=== PATIENT | female | born 2000 | race Caucasian/White ===

== ENCOUNTER 2024-07-06 08:53 | Emergency (ER) | payer SELFPAY ==
[2024-07-06 09:32] VITALS: BP 160/100; PULSE 87; TEMP 36.6; O2SAT 98; BMI 42.1
[2024-07-06 10:23] LABS: Bilirubin Urine Negative (Negative); Blood Urine Negative (Negative); Glucose Urine UA Negative (Normal); Ketones Urine Negative (Negative); Leukocyte Esterase Urine Negative (Negative); Nitrate Urine Negative (Negative); Protein Urine Trace (Negative); Specific Gravity, Urine 1.007 (1.005-1.030); Urine Appearance Clear (CLEAR); Urine Color Yellow (Yellow); Urobilinogen Urine 0.2 mg/dL (Negative)
[2024-07-06 10:43] LABS: Add Urine Culture? No; Add Urine Microscopic? YES; Amorphous Sediment Urine 1+ /hpf; Bacteria Urine TRACE /hpf; RBC Urine RARE /hpf (0-2); Squamous Epithelial Cell Urine RARE /hpf (0-5); WBC Urine RARE /hpf (0-5)
[2024-07-06 11:04] LABS: Basophils # 0.1 10^3/uL (0.0-0.1); Basophils % 0.7 %; Eosinophils # 0.1 10^3/uL (0.0-0.8); Eosinophils % 1.7 %; Hematocrit 42.3 % (36-47); Lymphocytes # 1.5 10^3/uL (0.8-4.8); Lymphocytes % 20.7 %; Mean Corpuscular HGB Conc 32.9 g/dL (30-55); Mean Corpuscular Hemoglobin 25.5 pg (27-33); Mean Corpuscular Volume 77.5 fl (85-98); Mean Platelet Volume 9.2 fL (7.4-10.4); Monocytes # 0.5 10^3/uL (0.2-0.9); Monocytes % 7.3 %; Neutrophils # 5.14 10^3/uL (1.8-7.7); Neutrophils % 69.1 %; Nucleated Red Blood Cells % 0 %; Platelet Count 297 10^3/cmm (157-399); Red Blood Count 5.46 10^6/uL (3.85-5.65); Red Cell Distribution Width 15.2 % (12.1-15.1); White Blood Count 7.44 10^3/uL (3.29-11.43)
[2024-07-06 11:12] LABS: Influenza A NEGATIVE (Negative); Influenza B NEGATIVE (Negative); Respiratory Syncytial Virus Ce NEGATIVE (Negative); SARS-CoV-2 PCR NEGATIVE (Negative)
[2024-07-06 11:25] LABS: Alanine Aminotransferase 21 U/L (0-33); Albumin Level 4.5 g/dL (3.5-5.2); Alkaline Phosphatase 80 U/L (35-105); Anion Gap 14.8 (5-19); Aspartate Amino Transferase 18 U/L (0-32); Blood Urea Nitrogen 7 mg/dL (6-20); Calcium 9.8 mg/dL (8.5-10.5); Carbon Dioxide 25 mmol/L (22-29); Chloride 105 mmol/L (98-107); Creatinine Clr Calc Pharmacy 227.1503; Globulin 3.3 g/dL (1.3-4.6); Glomerular Filtration Rate 151.6 mL/min (90-130); Glucose 104 mg/dL (65-115); Lipase 24 U/L (13-60); Osmolality Calculated 290 mOsm/kg (285-295); Potassium 3.8 mmol/L (3.5-5.1); Sodium 141 mmol/L (136-145); Total Bilirubin 0.3 mg/dL (0.15-1.2); Total Protein 7.8 g/dL (6.6-8.7)
[2024-07-06 11:26] LABS: HCG, Serum Qual Negative (Negative)
--- NOTE | 2024-07-06 12:16 | W.ED.NAVMDI ---
HPI - Nausea/Vomiting/Diarrhea General: Chief complaint: Nausea/Vomiting/Diarrhea Stated complaint: vomiting Time Seen by Provider: 07/06/24 09:00 Source: patient Mode of arrival: ambulatory Limitations: no limitations History of Present Illness: Patient is a 23-year-old female presents to ED today with a complaint of nausea and vomiting upon awakening this morning. Patient originally thought that maybe she had just ate something poor the night before. States she had approximately 4-5 episodes of vomiting. She did notice a small amount of blood in the vomit but states this could have just been what she ate as she recalls eating rotel nachos for dinner. Patient concerned she could have an ulcer. Denies etoh use or excessive NSAID use. MD elicited complaint: nausea and vomiting Onset (ago): hour(s) Associated nausea: Yes Associated abdominal pain: No Location of pain: None Severity: mild Exacerbating factors: none Relieving factors: none Associated symtoms: Reports nausea; Denies chest pain, dizziness, dysuria, fatigue, headache(s) or malaise Related Data Home Medications ?Medication ?Instructions ?Recorded ?Confirmed No Known Home Medications 07/06/24 07/06/24 Allergies Allergy/AdvReac Type Severity Reaction Status Date / Time No Known Allergies Allergy Verified 07/06/24 09:36 Review of Systems Const: Denies: fever(s), chills, body aches, fatigue or malaise Card: Denies: chest pain Resp: Denies: dyspnea GI: Reports: nausea and vomiting; Denies: abdominal pain, hematemesis, GI cramping, hematochezia or melena : Denies: flank pain, difficulty voiding, dysuria, urinary frequency or urinary urgency Musc: Denies: neck pain, back pain, extremity pain, extremity swelling, joint pain, joint swelling or joint redness Skin/Breast: Denies: rash Neuro: Denies: headache(s), numbness in extremities, weakness in extremities, sensory changes or dizziness Physical Exam Const: COMMON NORMALS: no acute distress, patient oriented x3, no limitations, alert and well nourished GENERAL APPEARANCE: cooperative NUTRITIONAL APPEARANCE: obese morbidly obese (BMI 42.1) ORIENTATION/CONSCIOUSNESS: Yes awake, Yes oriented to person, Yes oriented to place and Yes oriented to time Eye: COMMON NORMALS: no scleral icterus Resp: COMMON NORMALS: normal respiratory effort and clear to auscultation bilaterally AUSCULTATION: clear to auscultation bilaterally Cardio: COMMON NORMALS: regular rate and regular rhythm RATE: regular rate RHYTHM: regular rhythm GI: COMMON NORMALS: Normal to inspection, nondistended, normoactive bowel sounds present, Soft to palpation, No hepatosplenomegaly present and no masses INSPECTION: Yes normal to inspection AUSCULTATION: Yes normoactive bowel sounds PALPATION: Yes Soft to palpation, Yes Tenderness to palpation present (GI) (mild upper abdominal pain-non surgical examination), No Guarding due to palpation present (GI), No Rigid due to palpation and Yes No hepatosplenomegaly present : COMMON NORMALS: Yes no CVA tenderness BLADDER/KIDNEY EXAM: Yes no CVA tenderness Back/Pelvis: COMMON NORMALS: no CVA tenderness and thoracic and lumbar spine normal to inspection Extremity: GENERAL: Yes normal exam except as noted Neuro: COMMON NORMALS: patient oriented x3, moves all extremities, no focal motor deficits, no sensory deficits noted and gait normal SENSORIUM/ORIENTATION: Yes alert, Yes oriented to person, Yes oriented to place and Yes oriented to time Skin: COMMON NORMALS: no rashes or lesions noted GENERAL SKIN EXAM: no rashes or lesions noted Course Vital Signs: Vital signs: Vital Signs Temperature 97.9 F 07/06/24 09:32 Pulse Rate 87 07/06/24 09:32 Blood Pressure 160/100 07/06/24 09:32 Pulse Oximetry 98 07/06/24 09:32 Oxygen Delivery Me thod Room Air 07/06/24 09:32 MDM - Nausea/Vomiting/Diarrhea Medical Decision Making Patient is a 23-year-old female here for a few episodes of nausea and vomiting beginning when she awoke this morning. Patient upon arrival feels much better and she is no longer complaining of nausea. She has not had any active episodes of emesis while here. She is some minor upper abdominal discomfort. Blood work overall is unremarkable. At this time I would have a low suspicion for gastric or duodenal ulcer or gastritis. Recommend she continue to monitor symptoms closely. If symptoms persist, I would recommend following up with her primary care provider for further evaluation. Differential Diagnosis Likely gastroenteritis Medical Records I reviewed the patient's medical records. Lab Data I reviewed the patient's lab results. 07/06/24 10:47 07/06/24 10:47 Laboratory Results WBC 7.44 10^3/uL (3.29-11.43) 07/06/24 10:47 RBC 5.46 10^6/uL (3.85-5.65) 07/06/24 10:47 Hgb 13.90 g/dL (11.27-16.99) 07/06/24 10:47 Hct 42.3 % (36-47) 07/06/24 10:47 MCV 77.5 fl (85-98) L 07/06/24 10:47 MCH 25.5 pg (27-33) L 07/06/24 10:47 MCHC 32.9 g/dL (30-55) 07/06/24 10:47 RDW 15.2 % (12.1-15.1) H 07/06/24 10:47 Plt Count 297 10^3/cmm (157-399) 07/06/24 10:47 MPV 9.2 fL (7.4-10.4) 07/06/24 10:47 Neut % (Auto) 69.1 % 07/06/24 10:47 Lymph % (Auto) 20.7 % 07/06/24 10:47 [place] % (Auto) 7.3 % 07/06/24 10:47 Eos % (Auto) 1.7 % 07/06/24 10:47 Baso % (Auto) 0.7 % 07/06/24 10:47 Neut # (Auto) 5.14 10^3/uL (1.8-7.7) 07/06/24 10:47 Lymph # (Auto) 1.5 10^3/uL (0.8-4.8) 07/06/24 10:47 [place] # (Auto) 0.5 10^3/uL (0.2-0.9) 07/06/24 10:47 Eos # (Auto) 0.1 10^3/uL (0.0-0.8) 07/06/24 10:47 Baso # (Auto) 0.1 10^3/uL (0.0-0.1) 07/06/24 10:47 Nucleated RBC % (auto) 0 % 07/06/24 10:47 Nucleated RBCs # 0.0 /100WBC 07/06/24 10:47 Sodium 141 mmol/L (136-145) 07/06/24 10:47 Potassium 3.8 mmol/L (3.5-5.1) 07/06/24 10:47 Chloride 105 mmol/L (98-107) 07/06/24 10:47 Carbon Dioxide 25 mmol/L (22-29) 07/06/24 10:47 Anion Gap 14.8 (5-19) 07/06/24 10:47 BUN 7 mg/dL (6-20) 07/06/24 10:47 Creatinine 0.5 mg/dL (0.5-0.9) 07/06/24 10:47 GFR Calculation 151.6 mL/min (90-130) H 07/06/24 10:47 Glucose 104 mg/dL (65-115) 07/06/24 10:47 Calculated Osmolality 290 mOsm/kg (285-295) 07/06/24 10:47 Calcium 9.8 mg/dL (8.5-10.5) 07/06/24 10:47 Total Bilirubin 0.3 mg/dL (0.15-1.2) 07/06/24 10:47 AST 18 U/L (0-32) 07/06/24 10:47 ALT 21 U/L (0-33) 07/06/24 10:47 Alkaline Phosphatase 80 U/L (35-105) 07/06/24 10:47 Total Protein 7.8 g/dL (6.6-8.7) 07/06/24 10:47 Albumin 4.5 g/dL (3.5-5.2) 07/06/24 10:47 Globulin 3.3 g/dL (1.3-4.6) 07/06/24 10:47 Lipase 24 U/L (13-60) 07/06/24 10:47 HCG, Qual Negative (Negative) 07/06/24 10:47 Urine Color Yellow (Yellow) 07/06/24 09:45 Urine Appearance Clear (CLEAR) 07/06/24 09:45 Urine pH 7.0 (5-7) 07/06/24 09:45 Ur Specific [place] 1.007 (1.005-1.030) 07/06/24 09:45 Urine Protein Trace (Negative) A 07/06/24 09:45 Urine Glucose (UA) Negative (Normal) 07/06/24 09:45 Urine Ketones Negative (Negative) 07/06/24 09:45 Urine Blood Negative (Negative) 07/06/24 09:45 Urine Nitrate Negative (Negative) 07/06/24 09:45 Urine Bilirubin Negative (Negative) 07/06/24 09:45 Urine Urobilinogen 0.2 mg/dL (Negative) 07/06/24 09:45 Ur Leukocyte Esterase Negative (Negative) 07/06/24 09:45 Urine RBC Rare /hpf (0-2) 07/06/24 09:45 Urine WBC Rare /hpf (0-5) 07/06/24 09:45 Ur Squamous Epith Cells Rare /hpf (0-5) 07/06/24 09:45 Amorphous Sediment 1+ /hpf 07/06/24 09:45 Urine Bacteria Trace /hpf (NONE) 07/06/24 09:45 Influenza A (PCR) Negative (Negative) 07/06/24 10:24 Influenza Type B (PCR) Negative (Negative) 07/06/24 10:24 RSV (PCR) Negative (Negative) 07/06/24 10:24 SARS-CoV-2 (PCR) Negative (Negative) 07/06/24 10:24 No radiology studies performed this visit Discharge Plan Discharge Patient Disposition: Home Clinical Impression: Nausea and vomiting Condition: Stable Prescriptions: No Action No Known Home Medications Discharge Orders: Discharge ED (Routine); Ordered 07/06/24 Ordered By: Teagan Garner Patient Instructions: Acute Nausea and Vomiting (DC) Activity Restrictions/Additional Instructions: As we discussed, your blood work here was unremarkable. Please monitor symptoms closely. You may return to the emergency department or follow-up with primary care for continued episodes of vomiting, vomiting blood, coffee-ground appearance to your vomit, severe abdominal pain, or any other concerns you may have. Print Language: Mexican Coding Level of Care Code ED Assistant Broker for Flori Spangler
[2024-07-06 13:00] VITALS: BP 161/107; PULSE 101; O2SAT 92
== END 2024-07-06 13:01 | disposition home or self-care (01) ==
PROVIDERS: Emergency Provider Physician Assistant
DX: R11.2 Nausea with vomiting, unspecified (principal); Z11.52 Encounter for screening for COVID-19
CPT/HCPCS: 36415; 80053; 81001; 83690; 84703; 85025; 87637; 99283